=== PATIENT | male | born 1955 | race Caucasian/White ===

== ENCOUNTER → 2019-05-08 | Outpatient (CLI) | payer OTHER ==
[~2019-05-08] MED LIST: AMLO10TA8 PO; ASCO10004 PO; ASPI81TA45 PO; ATOR10TA9 PO; HYDR25TA6 PO; TAMS-11 PO; TELM80TA PO; VITAMIN E PO
== END | disposition home or self-care (01) ==
LOC: CVU 06:49
PROVIDERS: ATTEND Internal Medicine Cardiovascular Disease
DX: I37.1 Nonrheumatic pulmonary valve insufficiency (principal); I10 Essential (primary) hypertension
CPT/HCPCS: 0399T; 93306

== ENCOUNTER 2019-05-16 13:38 | Day surgery (SDC) | payer OTHER ==
[2019-05-13 09:14] LABS: ALANINE AMINOTRANSFERASE 30 U/L (12-78); ANION GAP 8 mmol/L (5-15); CALCIUM 9.2 mg/dL (8.5-10.1); CHLORIDE 104 mmol/L (98-107)
[2019-05-13 09:17] LABS: ALKALINE PHOSPHATASE 68 U/L (45-117); BILIRUBIN,TOTAL 1.1 mg/dL (0.2-1.0); CREATININE 1.03 mg/dL (0.7-1.3); TOTAL PROTEIN 7.4 g/dL (6.4-8.2)
[~2019-05-16] VITALS: Ht 193 cm; Wt 123.0 kg
[2019-05-16] MEDS ORDERED: LACTATED RINGERS 1,000 ML IV SCH ×2 (13:52→21:00)
[2019-05-16] MEDS ORDERED: GABAPENTIN 300 MG CAPSULE PO ONE (14:00)
[2019-05-16] MEDS ORDERED: ACETAMINOPHEN 500 MG TABLET PO ONE (14:00)
[2019-05-16 14:01] VITALS: BP 172/82
[2019-05-16] MEDS ORDERED: BUPIVACAINE/EPI 0.5% 1:200K ONE (15:15)
[2019-05-16] MEDS ORDERED: FENTANYL PF 100 MCG/2ML IV PRN (16:30)
[2019-05-16] MEDS ORDERED: DIPHENHYDRAMINE 50 MG/ML, 1ML IVPush PRN (16:30)
[2019-05-16] MEDS ORDERED: HALOPERIDOL 5 MG/ML IV PRN (16:30)
[2019-05-16] MEDS ORDERED: MEPERIDINE/PF 25MG/0.5ML IVPush PRN (16:30)
[2019-05-16] MEDS ORDERED: PROCHLORPERAZINE 5 MG/ML, 2ML IV PRN (16:30)
[2019-05-16] MEDS ORDERED: LABETALOL 5MG/ML, 20ML IV PRN (16:30)
[2019-05-16] MEDS ORDERED: OXYcodone 5 MG/5 ML ORAL.SOL UDC PO PRN (16:30)
[2019-05-16] MEDS ORDERED: hydrALAzine 20 MG/ML, 1ML IV PRN (16:30)
[2019-05-16] MEDS ORDERED: PROMETHAZINE 25 MG/ML, 1ML IV PRN (16:30)
[2019-05-16] MEDS ORDERED: METOPROLOL 1 MG/ML, 5ML IV PRN (16:30)
[2019-05-16] MEDS ORDERED: HYDROmorphone 2 MG/ML, 1ML IVPush PRN (16:30)
[2019-05-16] MEDS ORDERED: MIDAZOLAM 1 MG/ML, 2ML ONE (16:39)
[2019-05-16] MEDS ORDERED: FENTANYL PF 250 MCG/5ML ONE (16:39)
[2019-05-16] MEDS ORDERED: EPHEDRINE 50 MG/ML, 1ML ONE (16:58)
[2019-05-16] MEDS ORDERED: DEXAMETHASONE 4 MG/ML, 1ML ONE (17:47)
[2019-05-16] MEDS ORDERED: SUCCINYLCHOLINE 20 MG/ML, 10ML ONE (17:47)
[2019-05-16] MEDS ORDERED: ROCURONIUM 10MG/ML,5ML ONE (17:47)
[2019-05-16] MEDS ORDERED: GLYCOPYRROLATE 0.2MG/1ML, 5ML ONE (17:47)
[2019-05-16] MEDS ORDERED: NEOSTIGMINE 1 MG/ML, 10ML ONE (17:47)
[2019-05-16] MEDS ORDERED: ONDANSETRON 2MG/ML, 2ML ONE (17:47)
[2019-05-16] MEDS ORDERED: PROPOFOL 10 MG/ML, 20ML ONE (17:47)
[2019-05-16] MEDS ORDERED: CEFAZOLIN 1,000 MG ONE (17:47)
[2019-05-16] MEDS ORDERED: OXYcodone 5 MG/5 ML ORAL.SOL UDC ONE (18:06)
[2019-05-16] MEDS ORDERED: ONDANSETRON 2MG/ML, 2ML IVPush PRN (21:00)
[2019-05-16] MEDS ORDERED: MORPHINE SULFATE 4 MG/ML, 1ML IVPush PRN (21:00)
[2019-05-16] MEDS ORDERED: OXYcodone/APAP 5/325MG TABLET PO PRN (21:00)
== END 2019-05-16 20:28 | disposition home or self-care (01) ==
LOC: OR 13:38 → 4NOR 19:39 → OR 20:28
PROVIDERS: ATTEND Surgery
DX: K42.9 Umbilical hernia without obstruction or gangrene (principal); I10 Essential (primary) hypertension; E78.5 Hyperlipidemia, unspecified; I86.1 Scrotal varices; E66.9 Obesity, unspecified; Z68.34 Body mass index [BMI] 34.0-34.9, adult; Z72.89 Other problems related to lifestyle; Z79.82 Long term (current) use of aspirin; Z79.899 Other long term (current) drug therapy; Z98.890 Other specified postprocedural states; Z82.49 Family history of ischemic heart disease and other diseases of the circulatory system
CPT/HCPCS: 36415; 49585; 80053; 93005; J0330; J0690; J1100; J2250; J2405; J2704; J2710; J3010; J7120; G0378